=== PATIENT | female | born 1940 | race Caucasian/White ===

== ENCOUNTER 2016-12-10 16:06 | Inpatient (IN) | payer OTHER ==
[~2016-12-10] VITALS: Ht 157.5 cm; Wt 36.0 kg
[~2016-12-10 16:06] MED LIST: ACET-6 PO
[2016-12-10 20:59] LABS: Basophils # (auto) 0 uL; Basophils % (auto) 0.2 % (0.0-2.0); DEFINITIVE VIEW TRANSMISSION; Eosinophils # (auto) 0 uL; Hematocrit 38.9 % (36.0-46.0); Hemoglobin 12.3 g/dL (12.2-16.2); Lymphocytes # (auto) 0.6 uL; Lymphocytes % (auto) 4.3 % (10.0-50.0); Mean Corpuscular Hgb Conc. 31.7 g/dL (32.0-36.0); Mean Corpuscular Volume 97.8 fL (80.0-100.0); Mean Platelet Volume 10.4 fL (7.4-10.4); Monocytes # (auto) 0.2 uL; Monocytes % (auto) 1.5 % (0.0-12.0); Neutrophils # (auto) 12.8 uL; Platelet Count (auto) 129 10^3/uL (140-450); White Blood Cell 13.6 10^3/uL (4.4-10.8)
[2016-12-10 21:16] LABS: Albumin 2.1 g/dL (3.4-5.0); BUN/Creatinine Ratio 68.4; Calcium 8.2 mg/dL (8.5-10.1); Potassium 3.4 mmol/L (3.5-5.1)
[2016-12-10 21:18] LABS: Bilirubin, Total 0.9 mg/dL (0.2-1.0)
[2016-12-10 22:03] LABS: Platelet Estimate Decreased
[2016-12-10 22:04] LABS: Anisocytosis Slight; Burr Cells FEW
[2016-12-10 22:05] LABS: Ovalocytes FEW
[2016-12-10] MEDS ORDERED: SODIUM CHLORIDE 0.9% 500 ML IV ONE (23:45)
[2016-12-11] MEDS ORDERED: ONDANSETRON HCL 4 MG/2 ML VIAL IV PRN (07:00)
[2016-12-11] MEDS ORDERED: ALBUMIN 25% 100 ML IV ONE (07:00)
[2016-12-11] MEDS ORDERED: SOD CHL 0.45% 1,000 ML IV ONE (07:00)
[2016-12-11] MEDS ORDERED: MORPHINE SULF INJ 2 MG/ML SYRINGE 1ML IV PRN (07:00)
[2016-12-11 08:30] VITALS: BP 112/69
[2016-12-11 09:00] VITALS: BP 112/69
[2016-12-11] MEDS ORDERED: cefTRIAXone 1GM/50ML D5W 50 ML IV SCH (09:00)
[2016-12-11 13:00] VITALS: BP 93/60
[2016-12-11] MEDS ORDERED: LORazepam 2MG/ML-1ML VIAL IV PRN (13:15)
[2016-12-11 17:00] VITALS: BP 93/51
[2016-12-11 20:00] VITALS: BP 118/62
[2016-12-11 22:00] VITALS: BP 118/62
[2016-12-12] VITALS (7 sets, daily range): BP systolic 75–134; BP diastolic 43–85
[2016-12-12 06:38] LABS: BUN/Creatinine Ratio 76.4; Bilirubin, Total 0.8 mg/dL (0.2-1.0); Calcium 7.8 mg/dL (8.5-10.1); Total Protein 4.6 g/dL (6.4-8.2)
[2016-12-12 06:43] LABS: Basophils # (auto) 0 uL; Basophils % (auto) 0.2 % (0.0-2.0); DEFINITIVE VIEW TRANSMISSION; Eosinophils # (auto) 0 uL; Hematocrit 35.5 % (36.0-46.0); Hemoglobin 11.4 g/dL (12.2-16.2); Lymphocytes # (auto) 0.6 uL; Lymphocytes % (auto) 6.8 % (10.0-50.0); Mean Corpuscular Hemoglobin 30.9 pg (28.0-32.0); Mean Corpuscular Hgb Conc. 32.2 g/dL (32.0-36.0); Mean Platelet Volume 11.1 fL (7.4-10.4); Monocytes # (auto) 0.3 uL; Monocytes % (auto) 2.8 % (0.0-12.0); Neutrophils # (auto) 8.5 uL; Neutrophils % (auto) 90.2 % (37.0-80.0); Platelet Count (auto) 75 10^3/uL (140-450); Red Cell Distribution Width 19.4 % (11.6-16.0); White Blood Cell 9.4 10^3/uL (4.4-10.8)
[2016-12-13 04:40] VITALS: BP 79/44
[2016-12-13 08:00] VITALS: BP 85/53
[2016-12-13 08:12] VITALS: BP 85/53
[2016-12-13 11:01] VITALS: BP 85/53
[2016-12-13 12:50] VITALS: BP 89/49
== END 2016-12-13 14:20 | disposition hospice, home (50) | DRG 871 ==
LOC: EDBD 16:06 → ER 16:06 → OVERFLOW 16:07 → EAST 12-11 08:20
PROVIDERS: ADMIT Family Medicine; ATTEND Internal Medicine
DX: A41.9 Sepsis, unspecified organism (principal); E43 Unspecified severe protein-calorie malnutrition; G93.41 Metabolic encephalopathy; L89.94 Pressure ulcer of unspecified site, stage 4; E87.0 Hyperosmolality and hypernatremia; Z68.1 Body mass index [BMI] 19.9 or less, adult; I10 Essential (primary) hypertension; E86.0 Dehydration; E87.8 Other disorders of electrolyte and fluid balance, not elsewhere classified; I25.10 Atherosclerotic heart disease of native coronary artery without angina pectoris; T14.8 Other injury of unspecified body region; X58.XXXA Exposure to other specified factors, initial encounter; R62.7 Adult failure to thrive; Z51.5 Encounter for palliative care; F32.9 Major depressive disorder, single episode, unspecified; Z86.73 Personal history of transient ischemic attack (TIA), and cerebral infarction without residual deficits; Y93.89 Activity, other specified; Y92.89 Other specified places as the place of occurrence of the external cause; Z88.5 Allergy status to narcotic agent
CPT/HCPCS: 36415; 51702; 80053; 85025; 87040; 87077; 87081; 87186; 87205; 96361; 96365; J0696